=== PATIENT | male | born 2000 | race Caucasian/White ===

== ENCOUNTER 2020-10-29 21:28 | Emergency (ER) | payer OTHER ==
[~2020-10-29] VITALS: Ht 182.9 cm; Wt 76.2 kg
[2020-10-29] MEDS ORDERED: CIPROFLOXACIN 400 MG/D5W 200ML 200 ML IV STA (21:58)
[2020-10-29] MEDS ORDERED: KETOROLAC TROMETHAMINE 30 MG/ML VIAL IV STA (21:58)
[2020-10-29] MEDS ORDERED: SODIUM CHLORIDE 0.9% 1000ML 1,000 ML IV STA ×2 (21:58)
[2020-10-29] MEDS ORDERED: METRONIDAZOLE 500MG/NS 100ML 100 ML IV ONE (22:00)
[2020-10-29] MEDS ORDERED: METHYLPREDNISOLONE SOD SUCC 125 MG/2ML VIAL IV ONE (22:00)
[2020-10-29] MEDS ORDERED: ACETAMINOPHEN 325 MG TAB PO ONE (22:15)
[2020-10-29 22:48] LABS: BASOPHILS % 0.4 % (0.0-1.0); EOSINOPHILS % 0.4 % (0.0-6.0); HEMOGLOBIN 16.8 g/dL (14.0-18.0); LYMPHOCYTES # (AUTO) 0.2 (1.0-3.2); LYMPHOCYTES % 2.2 % (18.0-39.1); MEAN CORPUSCULAR HEMOGLOBIN 29.9 pg (28-32); MEAN CORPUSCULAR HGB CONC 34.3 g/dL (31-35); MEAN CORPUSCULAR VOLUME 87.3 fL (81-99); MONOCYTES # (AUTO) 0.4 (0.2-0.8); MONOCYTES % 4.5 % (4.4-11.3); PLATELET COUNT 236 x10e3/uL (140-360); RED BLOOD COUNT 5.61 x10e6/uL (4.3-5.7)
[2020-10-29] MEDS ORDERED: ONDANSETRON HCL INJ 2MG/ML 2ML 2 MG/ML VIAL IV STA (23:58)
[2020-10-30] MEDS ORDERED: PIPER-TAZ 3.375 GM / NS 50ML IV ONE
[2020-10-30] MEDS ORDERED: KETOROLAC TROMETHAMINE 30 MG/ML VIAL ONE (00:14)
[2020-10-30] MEDS ORDERED: ONDANSETRON HCL INJ 2MG/ML 2ML 2 MG/ML VIAL ONE (00:14)
[2020-10-30] MEDS ORDERED: METHYLPREDNISOLONE SOD SUCC 125 MG/2ML VIAL ONE (00:14)
[2020-10-30] MEDS ORDERED: PIPER-TAZ 3.375 GM 50 ML ONE (00:15)
[2020-10-30] MEDS ORDERED: SODIUM CHLORIDE 0.9% 1000ML 2,000 ML ONE (00:15)
[2020-10-30] MEDS ORDERED: PHENERGAN SUPP25 MG PO (02:00)
[2020-10-30] MEDS ORDERED: METRONIDAZOLE500 MG PO (02:00)
[2020-10-30] MEDS ORDERED: CIPRO500 MG PO (02:00)
[2020-10-30] MEDS ORDERED: LEVSIN-SL0.125 MG SL (02:00)
[2020-10-30] MEDS ORDERED: ONDANSETRON ODT4 MG PO (02:00)
[2020-10-30] MEDS ORDERED: LOMOTIL TABLET1 EACH PO (02:00)
[2020-10-30] MEDS ORDERED: ACETAMINOPHEN 325 MG TAB ONE (02:13)
[2020-10-30 03:42] VITALS: BP 112/70
== END 2020-10-30 03:24 | disposition home or self-care (01) ==
LOC: FSED 21:30
DX: R11.2 Nausea with vomiting, unspecified (principal); R10.84 Generalized abdominal pain; K52.9 Noninfective gastroenteritis and colitis, unspecified; R50.9 Fever, unspecified; E86.0 Dehydration
CPT/HCPCS: 36415; 80048; 80076; 81003; 85025 ×2; 96374; 96376; 99283; J1885; J2405; J2543; J2930; J7030